=== PATIENT | male | born 1985 | race Two or more races ===

== ENCOUNTER 2016-06-01 06:05 | Emergency (ER) | payer OTHER ==
[~2016-06-01] VITALS: Ht 177.8 cm; Wt 86.2 kg
[2016-06-01 06:48] VITALS: BP 157/100
== END 2016-06-01 06:49 | disposition home or self-care (01) ==
LOC: ER 06:05
DX: F15.10 Other stimulant abuse, uncomplicated (principal); F10.10 Alcohol abuse, uncomplicated; I10 Essential (primary) hypertension
CPT/HCPCS: A4606; Z7502; Z7610

== ENCOUNTER 2017-05-03 22:08 | Emergency (ER) | payer OTHER ==
[~2017-05-03] VITALS: Ht 177.8 cm; Wt 90.7 kg
[2017-05-03 22:09] VITALS: BP 156/95
== END 2017-05-04 01:04 | disposition home or self-care (01) ==
LOC: ER 22:11
DX: B34.9 Viral infection, unspecified (principal); I10 Essential (primary) hypertension
CPT/HCPCS: 71045; 99283; A4606; Z7610

== ENCOUNTER 2018-09-20 12:48 | Emergency (ER) ==
[~2018-09-20] VITALS: Ht 177.8 cm; Wt 90.7 kg
[2018-09-20 13:26] VITALS: BP 157/98
== END 2018-09-20 14:20 | disposition home or self-care (01) ==
LOC: ER 12:48
DX: T23.201A Burn of second degree of right hand, unspecified site, initial encounter (principal); L03.113 Cellulitis of right upper limb; F10.10 Alcohol abuse, uncomplicated; Y90.9 Presence of alcohol in blood, level not specified; Z86.14 Personal history of Methicillin resistant Staphylococcus aureus infection; X08.8XXA Exposure to other specified smoke, fire and flames, initial encounter; Y93.89 Activity, other specified; Y92.89 Other specified places as the place of occurrence of the external cause; Y99.8 Other external cause status

== ENCOUNTER 2021-08-24 12:29 | Inpatient (IN) | payer OTHER ==
[~2021-08-24] VITALS: Ht 175.3 cm; Wt 76.7 kg
[2021-08-24] MEDS ORDERED: LORAZEPAM INJ 2 MG/ML VIAL ONE (12:45)
[2021-08-24] MEDS ORDERED: LACT1CAP71 PO (12:53)
[2021-08-24] MEDS ORDERED: MULT-465 PO (12:53)
[2021-08-24] MEDS ORDERED: ALBU8.5H8 IH (12:53)
[2021-08-24] MEDS ORDERED: AMLO2.5T4 PO (12:53)
[2021-08-24] MEDS ORDERED: FOLI0.4T6 PO (12:53)
[2021-08-24] MEDS ORDERED: SUMA100T16 PO (12:53)
[2021-08-24] MEDS ORDERED: CYAN10006 IM (12:53)
[2021-08-24] MEDS ORDERED: DOCU50LI PO (12:53)
[2021-08-24] MEDS ORDERED: GABA-532 PO (12:53)
[2021-08-24] MEDS ORDERED: EPIN0.1S2 IM (12:53)
[2021-08-24] MEDS ORDERED: LORA10TA7 PO (12:53)
[2021-08-24] MEDS ORDERED: ERGO500093 PO (12:53)
[2021-08-24] MEDS ORDERED: BICT1TAB PO (12:53)
[2021-08-24] MEDS ORDERED: VALA100026 PO (12:53)
[2021-08-24] MEDS ORDERED: OMEP40CA21 PO (12:53)
[2021-08-24] MEDS ORDERED: ALUM35SO TP (12:57)
[2021-08-24] MEDS ORDERED: CLIN30SO2 TP (12:57)
[2021-08-24] MEDS ORDERED: TRET20GE2 TP (12:57)
[2021-08-24] MEDS ORDERED: LORAZEPAM INJ 2 MG/ML VIAL IM ONE (13:00)
[2021-08-24 14:16] LABS: CALCIUM, SERUM 8.9 mg/dL (8.5-10.1); CARBON DIOXIDE 28 mmol/L (21-32); CHLORIDE 105 mmol/L (98-107); GLUCOSE 102 mg/dL (74-106); POTASSIUM 4.1 mmol/L (3.5-5.1); SODIUM SERUM 141 mmol/L (136-145); UREA NITROGEN, BLOOD 12 mg/dL (7-18)
[2021-08-24 14:17] LABS: BASOPHILS % (AUTO) 0.3 % (0.0-2.0); EOSINOPHILS % (AUTO) 0.3 % (0.0-6.0); HEMATOCRIT 45 % (39-51); HEMOGLOBIN 15.2 g/dL (13.5-17.5); LYMPHOCYTES # (AUTO) 0.9 K/uL (0.8-4.8); LYMPHOCYTES % (AUTO) 8.5 % (20.0-44.0); MEAN CORPUSCULAR HGB CONC 34 g/dl (31.0-36.0); MEAN CORPUSCULAR VOLUME 92 fL (80-96); MONOCYTES # (AUTO) 0.8 K/uL (0.1-1.30); MONOCYTES % (AUTO) 7.3 % (2.0-12.0); NEUTROPHILS # (AUTO) 8.7 K/uL (1.8-8.9); NEUTROPHILS % (AUTO) 83.6 % (43.0-81.0); PLATELET COUNT (AUTO) 258 K/uL (150-450); RED BLOOD CELL COUNT(AUTO) 4.84 MIL/uL (4.5-6.0); WHITE BLOOD COUNT (AUTO) 10.4 K/uL (4.3-11.0)
[2021-08-24 14:22] LABS: ALANINE AMINOTRANSFERASE 14 U/L (12-78); ALBUMIN 3.9 g/dL (3.4-5.0); ALCOHOL, BLOOD < 3 mg/dL (0-0); ALKALINE PHOSPHATASE 78 U/L (46-116); ASPARTATE AMINOTRANSFERASE 12 U/L (15-37); BILIRUBIN,DIRECT 0.1 mg/dL (0.0-0.2); BILIRUBIN,TOTAL 0.5 mg/dL (0.2-1.0)
[2021-08-24 14:23] LABS: ACETAMINOPHEN < 10 ug/ml (10-30)
[2021-08-24 15:04] LABS: BILIRUBIN,URINE NEGATIVE (NEGATIVE); COLOR,URINE YELLOW (YELLOW); LEUKOCYTE ESTERASE ,URINE NEGATIVE (NEGATIVE); NITRITE, URINE NEGATIVE (NEGATIVE); PROTEIN,URINE NEGATIVE (NEGATIVE); UGLUCOSE NEGATIVE (NEGATIVE); UROBILINOGEN,URINE 0.2 EU/dL (0.2)
[2021-08-24] MEDS ORDERED: IOHEXOL-350 100 ML VIAL IV ONE (21:17)
[2021-08-24] MEDS ORDERED: IV NS 0.9% 250 ML IV ONE (21:17)
[2021-08-24 21:39] LABS: BASOPHILS % (AUTO) 0.2 % (0.0-2.0); EOSINOPHILS % (AUTO) 0.1 % (0.0-6.0); HEMATOCRIT 47 % (39-51); HEMOGLOBIN 15.9 g/dL (13.5-17.5); LYMPHOCYTES # (AUTO) 2.2 K/uL (0.8-4.8); LYMPHOCYTES % (AUTO) 20.8 % (20.0-44.0); MEAN CORPUSCULAR HGB CONC 34 g/dl (31.0-36.0); MEAN CORPUSCULAR VOLUME 91 fL (80-96); MONOCYTES # (AUTO) 0.7 K/uL (0.1-1.30); MONOCYTES % (AUTO) 6.4 % (2.0-12.0); NEUTROPHILS # (AUTO) 7.6 K/uL (1.8-8.9); NEUTROPHILS % (AUTO) 72.5 % (43.0-81.0); PLATELET COUNT (AUTO) 293 K/uL (150-450); WHITE BLOOD COUNT (AUTO) 10.4 K/uL (4.3-11.0)
[2021-08-24 21:47] LABS: CALCIUM, SERUM 8.8 mg/dL (8.5-10.1); CARBON DIOXIDE 27 mmol/L (21-32); CHLORIDE 104 mmol/L (98-107); GLUCOSE 109 mg/dL (74-106); POTASSIUM 3.5 mmol/L (3.5-5.1); SODIUM SERUM 142 mmol/L (136-145); UREA NITROGEN, BLOOD 13 mg/dL (7-18)
[2021-08-24] MEDS ORDERED: IV NS 0.9% 1,000 ML IV PRN (23:30)
[2021-08-24] MEDS ORDERED: ACETAMINOPHEN 325 MG TABLET PO PRN (23:30)
[2021-08-24] MEDS ORDERED: SUMATRIPTAN SUCCINATE 100 MG TABLET PO PRN (23:30)
[2021-08-24] MEDS ORDERED: ONDANSETRON HCL/PF 4 MG/2 ML VIAL IVP PRN (23:30)
[2021-08-24] MEDS ORDERED: ALBUTEROL FS 2.5 MG/3 ML VIAL.NEB IH PRN (23:45)
[2021-08-25] MEDS ORDERED: LORAZEPAM INJ 2 MG/ML VIAL IV PRN (01:30)
[2021-08-25] MEDS: IV NS 0.9% 1,000 ML IV SCH ×4 (03:24→22:43)
[2021-08-25] MEDS: MORPHINE SULFATE INJ 2 MG/ML DISP.SYRIN IV PRN ×4 (03:42→22:02)
[2021-08-25 04:00] VITALS: BP 108/66
[2021-08-25 07:36] LABS: BASOPHILS % (AUTO) 0.6 % (0.0-2.0); EOSINOPHILS % (AUTO) 0.7 % (0.0-6.0); HEMATOCRIT 44 % (39-51); HEMOGLOBIN 14.6 g/dL (13.5-17.5); LYMPHOCYTES # (AUTO) 1.9 K/uL (0.8-4.8); LYMPHOCYTES % (AUTO) 29.9 % (20.0-44.0); MEAN CORPUSCULAR HGB CONC 34 g/dl (31.0-36.0); MEAN CORPUSCULAR VOLUME 93 fL (80-96); MONOCYTES # (AUTO) 0.7 K/uL (0.1-1.30); NEUTROPHILS # (AUTO) 3.7 K/uL (1.8-8.9); NEUTROPHILS % (AUTO) 57.8 % (43.0-81.0); PLATELET COUNT (AUTO) 255 K/uL (150-450); WHITE BLOOD COUNT (AUTO) 6.5 K/uL (4.3-11.0)
[2021-08-25 08:00] VITALS: BP 132/88
[2021-08-25] MEDS: DOCUSATE SODIUM LIQ 100 MG/10 ML UDC PO SCH (08:05)
[2021-08-25] MEDS: LORATADINE 10 MG TABLET PO SCH (08:05)
[2021-08-25] MEDS: PANTOPRAZOLE 40 MG TABLET.DR PO SCH (08:05)
[2021-08-25] MEDS: FOLIC ACID 1 MG TABLET PO SCH (08:06)
[2021-08-25] MEDS: LACTOBACILLUS RHAMNOSUS GG 1 EACH CAP.SPRINK PO SCH (08:06)
[2021-08-25] MEDS: AMLODIPINE BESYLATE 2.5 MG TABLET PO SCH (08:06)
[2021-08-25] MEDS: MULTIVIT W/MINERALS 1 TAB TABLET PO SCH (08:06)
[2021-08-25] MEDS: GABAPENTIN 300 MG CAPSULE PO SCH ×3 (08:06→17:00)
[2021-08-25 08:09] LABS: ALBUMIN 3.5 g/dL (3.4-5.0); CALCIUM, SERUM 8.4 mg/dL (8.5-10.1); CREATININE 0.9 mg/dL (0.6-1.3); MAGNESIUM 2.1 mg/dL (1.8-2.4); PHOSPHORUS 4.6 mg/dL (2.5-4.9); POTASSIUM 3.8 mmol/L (3.5-5.1); TOTAL PROTEIN, SERUM 6.4 g/dL (6.4-8.2)
[2021-08-25] MEDS ORDERED: VALACYCLOVIR HCL 500 MG TABLET PO SCH (09:00)
[2021-08-25] MEDS ORDERED: HEPARIN SODIUM, PORCINE 5000 UNITS/1 ML VIAL SQ SCH (09:00)
[2021-08-25] MEDS ORDERED: CLINDAMYCIN PHOSPHATE-T 60 ML BOTTLE TP SCH (09:00)
[2021-08-25 12:00] VITALS: BP 122/74
[2021-08-25] MEDS ORDERED: GADOTERATE MEGLUMINE 10 MMOL/20 ML VIAL IV ONE (13:42)
[2021-08-25] MEDS ORDERED: BIKTARVY PO SCH (15:00)
[2021-08-25] MEDS: ENOXAPARIN SODIUM 40 MG/0.4 ML DISP.SYRIN SQ SCH (15:07)
[2021-08-25 16:00] VITALS: BP 140/78
[2021-08-25 20:00] VITALS: BP 138/88
[2021-08-25] MEDS: BIKTARVY PO SCH (21:01)
[2021-08-25] MEDS ORDERED: VALACYCLOVIR HCL 500 MG TABLET ONE (21:55)
[2021-08-25] MEDS: VALACYCLOVIR HCL 500 MG TABLET PO SCH (22:03)
[2021-08-26] VITALS: BP 138/88
[2021-08-26 04:00] VITALS: BP 132/73
[2021-08-26] MEDS: MORPHINE SULFATE INJ 2 MG/ML DISP.SYRIN IV PRN ×4 (04:40→19:51)
[2021-08-26 08:00] VITALS: BP 129/94
[2021-08-26] MEDS: DOCUSATE SODIUM LIQ 100 MG/10 ML UDC PO SCH (08:36)
[2021-08-26] MEDS: LACTOBACILLUS RHAMNOSUS GG 1 EACH CAP.SPRINK PO SCH (08:37)
[2021-08-26] MEDS: MULTIVIT W/MINERALS 1 TAB TABLET PO SCH (08:37)
[2021-08-26] MEDS: LORATADINE 10 MG TABLET PO SCH (08:37)
[2021-08-26] MEDS: AMLODIPINE BESYLATE 2.5 MG TABLET PO SCH (08:37)
[2021-08-26] MEDS: PANTOPRAZOLE 40 MG TABLET.DR PO SCH (08:37)
[2021-08-26] MEDS: FOLIC ACID 1 MG TABLET PO SCH (08:37)
[2021-08-26] MEDS: GABAPENTIN 300 MG CAPSULE PO SCH ×3 (08:37→16:34)
[2021-08-26] MEDS ORDERED: CLINDAMYCIN PHOSPHATE-T 60 ML BOTTLE TP SCH (09:00)
[2021-08-26 12:00] VITALS: BP 145/95
[2021-08-26] MEDS: ENOXAPARIN SODIUM 40 MG/0.4 ML DISP.SYRIN SQ SCH (15:00)
[2021-08-26 16:00] VITALS: BP 126/83
[2021-08-26] MEDS: ENSURE ENLIVE CHOC 237 ML CAN PO SCH (17:36)
[2021-08-26 20:00] VITALS: BP 129/78
[2021-08-26] MEDS: BIKTARVY PO SCH (21:18)
[2021-08-26] MEDS: VALACYCLOVIR HCL 500 MG TABLET PO SCH (21:19)
[2021-08-27] VITALS: BP 120/72
[2021-08-27] MEDS: MORPHINE SULFATE INJ 2 MG/ML DISP.SYRIN IV PRN ×4 (03:29→20:11)
[2021-08-27 04:00] VITALS: BP 106/68
[2021-08-27 08:00] VITALS: BP 125/74
[2021-08-27] MEDS: LORATADINE 10 MG TABLET PO SCH (08:32)
[2021-08-27] MEDS: MULTIVIT W/MINERALS 1 TAB TABLET PO SCH (08:32)
[2021-08-27] MEDS: DOCUSATE SODIUM LIQ 100 MG/10 ML UDC PO SCH (08:32)
[2021-08-27] MEDS: LACTOBACILLUS RHAMNOSUS GG 1 EACH CAP.SPRINK PO SCH (08:32)
[2021-08-27] MEDS: GABAPENTIN 300 MG CAPSULE PO SCH ×3 (08:32→16:41)
[2021-08-27] MEDS: FOLIC ACID 1 MG TABLET PO SCH (08:33)
[2021-08-27] MEDS: AMLODIPINE BESYLATE 2.5 MG TABLET PO SCH (08:33)
[2021-08-27] MEDS: PANTOPRAZOLE 40 MG TABLET.DR PO SCH (08:33)
[2021-08-27] MEDS: ENSURE ENLIVE CHOC 237 ML CAN PO SCH ×3 (08:34→16:41)
[2021-08-27 12:00] VITALS: BP 121/66
[2021-08-27] MEDS: ENOXAPARIN SODIUM 40 MG/0.4 ML DISP.SYRIN SQ SCH (15:43)
[2021-08-27 16:00] VITALS: BP 119/69
[2021-08-27 20:00] VITALS: BP 118/73
[2021-08-27] MEDS: BIKTARVY PO SCH (20:11)
[2021-08-27] MEDS: VALACYCLOVIR HCL 500 MG TABLET PO SCH (21:13)
[2021-08-28] VITALS: BP 118/72
[2021-08-28] MEDS: MORPHINE SULFATE INJ 2 MG/ML DISP.SYRIN IV PRN ×3 (03:54→13:39)
[2021-08-28 04:00] VITALS: BP 124/77
[2021-08-28 08:00] VITALS: BP 116/68
[2021-08-28] MEDS: MULTIVIT W/MINERALS 1 TAB TABLET PO SCH (09:18)
[2021-08-28] MEDS: LORATADINE 10 MG TABLET PO SCH (09:18)
[2021-08-28] MEDS: AMLODIPINE BESYLATE 2.5 MG TABLET PO SCH (09:19)
[2021-08-28] MEDS: FOLIC ACID 1 MG TABLET PO SCH (09:19)
[2021-08-28] MEDS: PANTOPRAZOLE 40 MG TABLET.DR PO SCH (09:19)
[2021-08-28] MEDS: LACTOBACILLUS RHAMNOSUS GG 1 EACH CAP.SPRINK PO SCH (09:20)
[2021-08-28] MEDS: GABAPENTIN 300 MG CAPSULE PO SCH ×2 (09:20→13:39)
[2021-08-28] MEDS: ENOXAPARIN SODIUM 40 MG/0.4 ML DISP.SYRIN SQ SCH (09:20)
[2021-08-28] MEDS: DOCUSATE SODIUM LIQ 100 MG/10 ML UDC PO SCH (09:20)
[2021-08-28] MEDS: ENSURE ENLIVE CHOC 237 ML CAN PO SCH ×2 (09:21→12:22)
[2021-08-28 12:00] VITALS: BP 114/75
[2021-08-30] MEDS ORDERED: ERGOCALCIFEROL (VITAMIN D 2) 50,000 UNIT CAPSULE PO SCH (18:00)
[2021-09-03] MEDS ORDERED: CYANOCOBALAMIN 1,000 MCG/ML VIAL IM SCH (09:00)
== END 2021-08-28 15:55 | disposition short-term general hospital (02) | DRG 917 ==
LOC: ER 12:35 → TELE 23:15 → TELE-TD 08-25 01:05 → TELE1 08-26 14:23
PROVIDERS: ADMIT Internal Medicine
DX: T40.711A Poisoning by cannabis, accidental (unintentional), initial encounter (principal); G92.8 Other toxic encephalopathy; I63.9 Cerebral infarction, unspecified; G81.04 Flaccid hemiplegia affecting left nondominant side; Y92.89 Other specified places as the place of occurrence of the external cause; Z20.822 Contact with and (suspected) exposure to COVID-19; I10 Essential (primary) hypertension; F32.A Depression, unspecified; G62.9 Polyneuropathy, unspecified; Z79.899 Other long term (current) drug therapy; R29.810 Facial weakness; Z53.20 Procedure and treatment not carried out because of patient's decision for unspecified reasons; Z98.84 Bariatric surgery status; Z86.74 Personal history of sudden cardiac arrest; R29.713 NIHSS score 13
CPT/HCPCS: 36415; 70450-TC; 70553-TC; 71045-TC; 80048-TC; 80053-TC; 80076-TC; 82962-TC; 83605-TC; 83735-TC; 84100-TC; 84484-TC; 85025-TC; 85730-TC; 87081-TC; 93307-TC; 97112-TC; 97530-TC; A9575; C9803; G0378; G0480; J1650; J2060; J2270; J7030; J7050; Q9967